=== PATIENT | female | born 1975 | race American Indian/Alaskan Native ===

== ENCOUNTER 2016-06-25 18:51 | Emergency (ER) | payer MEDICAID ==
--- NOTE | 2016-06-25 21:14 | Emergency Department Report ---
HPI - General Chief Complaint: Extremity Problem,Nontraumatic Time Seen by Provider: 06/25/16 20:28 - HPI HPI: 40-year-old female presents to ED complaining of left-sided back pain that radiates down her anterior left thigh 4 days. Patient states she is out of this pain for the past 4 days. Patient states walking for long distances as well as standing for prolonged period makes the pain worse. Patient denies any recent falls injury or trauma. Patient denies any allergies to any medications. Patient denies fever assess chills/nausea/vomiting/abdominal pain as chest pain/ shortness of breath or problems. ED Past Medical Hx - Past Medical History Previous Medical History?: Yes Additional medical history: Lymphedema. Obesity - Surgical History Past Surgical History?: Yes Additional Surgical History: C-Sec x 3 - Social History Smoking Status: Never Smoker Substance Use Type: None - Medications Home Medications: Home Medications Medication Instructions Recorded Confirmed Last Taken Type methOCARBAMOL [Robaxin TAB] 500 mg PO BID #20 tablet 06/25/16 Unknown Rx traMADol [Ultram 50 MG tab] 50 mg PO Q6H #24 tablet 06/25/16 Unknown Rx ED Review of Systems ROS: Stated complaint: PAIN IN LEFT LEG/RT KNEE/BACK Other details as noted in HPI Constitutional: denies: chills, fever Eyes: denies: eye pain, eye discharge, vision change ENT: denies: ear pain, throat pain Respiratory: denies: cough, shortness of breath, wheezing Cardiovascular: denies: chest pain, palpitations Endocrine: no symptoms reported Gastrointestinal: denies: abdominal pain, nausea, diarrhea Genitourinary: denies: urgency, dysuria, discharge Musculoskeletal: denies: back pain, joint swelling, arthralgia Skin: denies: rash, lesions Neurological: denies: headache, weakness, paresthesias Psychiatric: denies: anxiety, depression Hematological/Lymphatic: denies: easy bleeding, easy bruising Physical Exam - Physical Exam Vital Signs: Vital Signs 06/25/16 19:31 Temperature 98.6 F Pulse Rate 61 Respiratory 18 Rate Blood Pressure 153/71 [Right] O2 Sat by Pulse 100 Oximetry Physical Exam: GENERAL: Alert and oriented x3, no apparent distress, Normal Gait, atraumatic. HEAD: Head is normocephalic and a-traumatic. EYES: Extra ocular muscles are intact. Pupils are equal, round, and reactive to light and accommodation. LUNGS: Symetrical with respiration, No wheezing, no rales or crackles, CTAB. HEART: S1, S2 present, regular rate and rhythm without murmur, no rubs, no gallops. EXTREMITIES/MUSCULOSKELETAL: No cyanosis, clubbing, rash, lesions or edema. Full ROM bilaterally. UE/LE Pulses 2+ bilaterally. LE and UE 5+ strength bilaterally. No calf tenderness bilaterally. Tenderness to palpation of the anterior thigh muscles. Straight leg raise positive on the left side. NEUROLOGIC: No focal Deficit, Cranial nerves II through XII are grossly intact. No loss of sensation, SKIN: Warm and dry, No lesions, No ulceration or induration present. ED Course Vital Signs 06/25/16 19:31 Temperature 98.6 F Pulse Rate 61 Respiratory 18 Rate Blood Pressure 153/71 [Right] O2 Sat by Pulse 100 Oximetry ED Medical Decision Making - Medical Decision Making 40-year-old female presents with lumbar radiculopathy. ED course: Patient received tramadol and Robaxin ED. Discussed the patient will follow-up with the primary care physician as referred. Discussed rest and avoid strenuous activities. Discussed to take medication as prescribed. Patient states she understands and will follow-up as discussed. Vital signs are normal. Patient is in no acute or respiratory distress. Critical care attestation.: If time is entered above; I have spent that time in minutes in the direct care of this critically ill patient, excluding procedure time. ED Disposition Clinical Impression: Lumbar radiculopathy Disposition: DISCHARGED TO HOME OR SELFCARE Is pt being admited?: No Does the pt Need Aspirin: No Condition: Stable Instructions: Lumbar Radiculopathy (ED), Musculoskeletal Pain (ED), Trigger Point Pain (ED), Heat Pack Application (ED) Prescriptions: methOCARBAMOL [Robaxin TAB] 500 mg PO BID #20 tablet traMADol [Ultram 50 MG tab] 50 mg PO Q6H #24 tablet Referrals: PRIMARY CARE, [Primary Care Provider] - 3-5 Days DARWIN TAYLOR MD [Staff Physician] - 3-5 Days KENNEDI GREENBERG MD [Referring] - 3-5 Days ESAU JACOBO MD [Referring] - 3-5 Days [facility] [Outside] - 3-5 Days [facility] [Outside] - 3-5 Days [facility] [Outside] - 3-5 Days Forms: Accompanied Note, Work/School Release Form(ED) Time of Disposition: 21:21
[2016-06-25] MEDS ORDERED: ROBAXIN PO ONE (21:15)
[2016-06-25] MEDS ORDERED: ULTRAM PO ONE (21:15)
[2016-06-25 21:50] VITALS: BP 130/89
== END 2016-06-25 21:50 | disposition home or self-care (01) ==
LOC: ED 18:51
DX: M54.16 Radiculopathy, lumbar region (principal)
CPT/HCPCS: 99282

== ENCOUNTER 2017-01-01 06:16 | Day surgery (SDC) | payer MEDICAID ==
--- NOTE | 2017-01-01 07:08 | Anesthesia Day of Surgery ---
Anesthesia Day of Surgery - Day of Surgery Patient Examined: Yes Patient H&P Reviewed: Yes Patient is NPO: Yes
--- NOTE | 2017-01-01 07:08 | Anesthesia Consultation ---
Anesthesia Consult and Med Hx Date of service: 01/01/17 - Airway Anesthetic Teeth Evaluation: Good ROM Head & Neck: Adequate Mental/Hyoid Distance: Adequate Mallampati Class: Class III Intubation Access Assessment: Probably Good - Pulmonary Exam CTA: Yes - Cardiac Exam Cardiac Exam: RRR - Pre-Operative Health Status ASA Pre-Surgery Classification: ASA3 Proposed Anesthetic Plan: General - Other Systems Hx Obesity: Yes - Additional Comments Anesthesia Medical History Comments: NAC previously. Patient is morbidly obese , but otherwise healthy.
[2017-01-01 07:28] VITALS: BP 140/73
[2017-01-01] MEDS ORDERED: DIPRIVAN 10 MG/ML IV ONE (07:36)
[2017-01-01] MEDS ORDERED: WATER FOR IRRIG STERILE IR ONE (07:43)
--- NOTE | 2017-01-01 07:58 | Discharge Summary ---
Providers - Providers Date of discharge: 01/01/17 Attending physician: KURT PEREZ Primary care physician: JIGAR NOEL Hospitalization Condition: Good Procedures: egd Disposition: DC- TO HOME OR SELFCARE Core Measure Documentation - Palliative Care Palliative Care/ Comfort Measures: Not Applicable - Core Measures Any of the following diagnoses?: none Exam - Physical Exam Narrative exam: unchanged from pre-op - Constitutional Vitals: Temp Pulse Resp BP Pulse Ox 97.9 F 58 L 20 140/73 99 01/01/17 07:15 01/01/17 07:15 01/01/17 07:15 01/01/17 07:15 01/01/17 07:15 Plan Activity: no restrictions Weight Bearing Status: Full Weight Bearing Diet: regular Follow up with: JIGAR NOEL MD [Primary Care Provider] - 7 Days
[2017-01-01] MEDS ORDERED: NACL 0.9% 1000 ML 1,000 ML IV SCH (08:00)
--- NOTE | 2017-01-01 08:00 | Operative Report ---
Operative Report Operative Report: OPERATIVE REPORT - EGD DATE 01/01/17 SURGERY: Upper endoscopy. SURGEON: Jo eJong M.D. PRE OP DX: dyspepsia POST OP DX: hiatal hernia TYPE OF ANESTHESIA: MAC. ESTIMATED BLOOD LOSS: None. COMPLICATIONS: None. SPECIMENS REMOVED: None. FINDINGS: 1. Small hiatal hernia. 2. Otherwise, normal esophagus, stomach and first portion of duodenum. INDICATIONS:INDICATION FOR PROCEDURE: Patient is a 41-year-old female with a long history of morbid obesity. She is planned to have a weight loss procedure and is here for preoperative planning EGD. We are looking for any pathology that may be prohibitive to her upcoming bariatric surgery. PROCEDURE DETAILS: After consent was reviewed, patient was taken back to the operating room where patient was placed in the left lateral decubitus position and a bite block was placed in the mouth. After a time-out was called, MAC anesthesia was initiated. I then passed the endoscope into her oropharynx, into her esophagus, visualized the entire esophagus, which was all within normal limits. I then visualized the stomach and the first portion of the duodenum and there were no abnormalities I could clearly visualize. I then retroflexed the scope in the stomach and visualized the hiatus and I could see a small hiatal hernia. I then desufflated the stomach and removed the endoscope. Patient tolerated procedure well and was transferred to recovery room in good and stable condition.
--- NOTE | 2017-01-01 08:40 | Post Anesthesia Evaluation ---
- Post Anesthesia Evaluation Patient Participated: Yes Airway Patent: Yes Stable Respiratory Function: Yes Nausea/Vomiting: No Temp > 96.8F: Yes Pain Manageable: Yes Adequeate Hydration: Yes Anesthesia Complications: No Block Receding Appropriately: Not Applicable Patient on Ventilator: No
== END 2017-01-01 06:17 | disposition home or self-care (01) ==
LOC: GIO 06:16
PROVIDERS: ATTEND Surgery
DX: K44.9 Diaphragmatic hernia without obstruction or gangrene (principal); E66.01 Morbid (severe) obesity due to excess calories
CPT/HCPCS: 43235; 81025; J2704; J7030

== ENCOUNTER 2017-01-15 07:25 | Inpatient (IN) | payer MEDICAID ==
--- NOTE | 2017-01-11 13:01 | Anesthesia Consultation ---
Anesthesia Consult and Med Hx Date of service: 01/15/17 - Airway Anesthetic Teeth Evaluation: Good ROM Head & Neck: Adequate Mental/Hyoid Distance: Adequate Mallampati Class: Class II Intubation Access Assessment: Probably Good - Pulmonary Exam CTA: Yes - Cardiac Exam Cardiac Exam: RRR - Pre-Operative Health Status ASA Pre-Surgery Classification: ASA3 Proposed Anesthetic Plan: General - Pulmonary Hx Smoking: No Hx Sleep Apnea: Yes (denies) - Cardiovascular System Hx Hypertension: No - Gastrointestinal Hx Gastroesophageal Reflux Disease: Yes - Endocrine Hx Non-Insulin Dependent Diabetes: No - Other Systems Hx Obesity: Yes (BMI 55) - Additional Comments Anesthesia Medical History Comments: Osteoarthritis
[2017-01-15] MEDS: FLAGYL 500 MG/100 ML 500 MG/100 ML BAG IV SCH (01:00)
[~2017-01-15 07:25] MED LIST: NACL 0.9% 1000 ML 1,000 ML IV SCH; PEPCID IV NR; TRANSDERM-SCOP TD NR; VERSED IV NR
[2017-01-15] MEDS ORDERED: FLAGYL 500 MG/100 ML 500 MG/100 ML BAG IV NR (08:00)
[2017-01-15] MEDS ORDERED: TRANSDERM-SCOP TD SCH (08:00)
[2017-01-15] MEDS ORDERED: ANCEF/STERILE WATER 2 GM/20 ML 2 GM/20 ML SYRINGE IV NR (08:00)
[2017-01-15] MEDS ORDERED: LOVENOX SUB-Q NR (08:00)
[2017-01-15] MEDS ORDERED: XYLOCAINE MPF 2% ONE (08:24)
[2017-01-15] MEDS ORDERED: DIPRIVAN 10 MG/ML IV ONE (08:24)
[2017-01-15] MEDS ORDERED: DECADRON ONE (08:25)
[2017-01-15] MEDS ORDERED: DILAUDID ONE (08:25)
[2017-01-15] MEDS ORDERED: ZOFRAN ONE (08:25)
[2017-01-15] MEDS ORDERED: ZEMURON IV ONE (08:25)
[2017-01-15 09:04] LABS: Basophils % (Auto) 0.8 % (0.0-1.8); Eosinophils % (Auto) 1.3 % (0.0-4.3); Hematocrit 34.1 % (30.3-42.9); Mean Corpuscular HGB Conc 32 % (30-34); Mean Corpuscular Hemoglobin 27 pg (28-32); Mean Corpuscular Volume 84 fl (79-97); Platelet Count 372 K/mm3 (140-440); Red Blood Count 4.08 M/mm3 (3.65-5.03); Red Cell Distribution Width 15.8 % (13.2-15.2); White Blood Count 7.1 K/mm3 (4.5-11.0)
[2017-01-15 09:12] LABS: BUN/Creatinine Ratio 17; Blood Urea Nitrogen 10 mg/dL (7-17); Calcium 9.1 mg/dL (8.4-10.2); Carbon Dioxide 27 mmol/L (22-30); Chloride 100.3 mmol/L (98-107); Glucose 75 mg/dL (65-100); Sodium 139 mmol/L (137-145)
--- NOTE | 2017-01-15 09:13 | Anesthesia Consultation ---
Anesthesia Consult and Med Hx Date of service: 01/15/17 - Airway Anesthetic Teeth Evaluation: Good ROM Head & Neck: Adequate Mental/Hyoid Distance: Adequate Mallampati Class: Class II Intubation Access Assessment: Good - Pulmonary Exam CTA: Yes - Cardiac Exam Cardiac Exam: No Murmur - Pre-Operative Health Status ASA Pre-Surgery Classification: ASA2 Proposed Anesthetic Plan: General - Pulmonary Hx Smoking: No Hx Sleep Apnea: Yes (denies) - Cardiovascular System Hx Hypertension: No - Central Nervous System Hx Psychiatric Problems: No - Gastrointestinal Hx Gastroesophageal Reflux Disease: Yes - Endocrine Hx Non-Insulin Dependent Diabetes: No - Other Systems Hx Alcohol Use: No Hx Substance Use: No Hx Cancer: No Hx Obesity: Yes (BMI 55) - Additional Comments Anesthesia Medical History Comments: Osteoarthritis
--- NOTE | 2017-01-15 09:13 | Anesthesia Day of Surgery ---
Anesthesia Day of Surgery - Day of Surgery Patient Examined: Yes Patient H&P Reviewed: Yes Patient is NPO: Yes
[2017-01-15 09:17] LABS: Anion Gap 17 mmol/L; Potassium 4.9 mmol/L (3.6-5.0)
[2017-01-15] MEDS ORDERED: NACL 0.9% 1000 ML 0 ML ONE (09:33)
[2017-01-15 10:00] LABS: Bilirubin,Urine NEG (Negative); Blood,Urine NEG (Negative); Ketones,Urine TR mg/dL (Negative); Leukocyte Esterase,Urine NEG (Negative); Mucus,Urine FEW /HPF; Nitrite,Urine NEG (Negative); Protein,Urine <15 mg/dL mg/dL (Negative); Urobilinogen,Urine < 2.0 mg/dL (<2.0)
[2017-01-15] MEDS ORDERED: NEO SYNEPHRINE/NS Syringe(OR USE) IV ONE (10:00)
[2017-01-15] MEDS ORDERED: XYLOCAINE 1% 20 mL ONE (10:32)
[2017-01-15] MEDS ORDERED: MARCAINE 0.5% 30 ML INFILTRATI ONE (10:32)
[2017-01-15] MEDS ORDERED: APRESOLINE IV PRN (10:33)
[2017-01-15] MEDS ORDERED: ADRENALIN ONE (10:33)
[2017-01-15] MEDS ORDERED: ZOFRAN IV PRN (10:33)
[2017-01-15] MEDS ORDERED: MYLICON PO PRN (10:33)
[2017-01-15] MEDS ORDERED: REGLAN IV PRN (10:33)
[2017-01-15] MEDS ORDERED: DILAUDID IV PRN (10:39)
[2017-01-15] MEDS ORDERED: NORCO PO PRN (10:39)
[2017-01-15] MEDS ORDERED: XYLOCAINE 1% 20 mL INFILTRATI ONE (11:25)
[2017-01-15] MEDS ORDERED: NACL 0.9% IR ONE (11:26)
[2017-01-15] MEDS ORDERED: ADRENALIN IV ONE (11:26)
[2017-01-15] MEDS ORDERED: MARCAINE 0.5% INFILTRATI ONE (11:43)
[2017-01-15] MEDS ORDERED: LACTATED RINGERS 1,000 ML IV SCH (11:55)
[2017-01-15] MEDS ORDERED: NEOSTIGMINE ONE (12:24)
[2017-01-15] MEDS ORDERED: ROBINUL ONE (12:24)
--- NOTE | 2017-01-15 12:39 | Operative Report ---
Operative Report Operative Report: Operative Report DATE OF PROCEDURE: PREOPERATIVE DIAGNOSES: Morbid obesity, hiatal hernia POSTOPERATIVE DIAGNOSES: 1.same as pre-op SURGEON: Jo Jeong M.D. BATTERYMAN: Lana Still DO PROCEDURE: 1. laparoscopic sleeve gastrectomy 2. laparoscopic hiatal hernia repair ANESTHESIA: General. ESTIMATED BLOOD LOSS: <5 mL. COMPLICATIONS: None. SPECIMEN: Partial gastrectomy. FINDINGS: 1. hiatal hernia INDICATION FOR PROCEDURE: Patient is a 41-year-old female with a long history of morbid obesity. She has tried multiple efforts at weight loss without terminal superintendent success. She is here today for sleeve gastrectomy. PROCEDURE IN DETAIL: After consent was reviewed, patient was taken back to the operating room, where patient was placed supine on the bed with both arms out. The patient's legs were doubly strapped to the bed. Patient had a foot board in place. Patient had a body warmer placed by anesthesia. Patient was then prepped and draped in normal sterile surgical fashion. After a time-out was called, I made a stab incision in left upper quadrant and placed a Veress needle through this incision and insufflated the abdomen to 18 mmHg pressure. I then counted down a handsbreadth below the xiphoid process in the midline and slightly left lateral injected local anesthetic and made about 1.5 cm transverse incision. I then used a 12-mm Optiview trocar to enter into the abdomen. I then placed a 45- degree scope through this port and inspected the abdomen. There was no injury on entry of the abdomen. I then placed two 5-mm ports in the right upper quadrant, one along the anterior axillary line and 1 subxiphoid below the costovertebral angle. I then placed a 15-mm port about a handsbreadth left lateral and inferior to my anterior axillary port. I then placed left upper quadrant port along the anterior axillary line in a similar fashion. I then placed the liver retractor through the subxiphoid port and placed the patient in full reverse Trendelenburg. The right and left crura were skeletonized accentuating a small hiatal hernia. I then identified the pylorus and then counted off 6cm from the pylorus. I then used a LigaSure cutting device to enter into the lesser sac. At that point and then I took down the short gastrics all the way up to the left narayan. Then I had anesthesia pass down a 36-[place]izen [place] bougie along the lesser curvature of the stomach. I made sure everything else was out of the abdomen except the bougie. I then created my gastric sleeve using a 60-mm laparoscopic stapler. . The sleeve looked good without any twisting or torsion. I then had anesthesia to remove the bougie. Hemostasis was obtained along the staple line. An anterior cruraplasty was perfromed with a figure-of-8 stitch using surgidac suture to reapproximate the crura. I then used Tiseel along the entirety of the staple line and some on the liver. I then removed liver grasper and took it off the field. Hemostasis was obtained with hemoclips. I then removed the stomach through the 15-mm port. I then closed that fascia with a #1 PDS in a [id number] fashion using a Jhony-Wade. I then desufflated the abdomen and then removed all port sites. I then closed the incisions with 4-0 Monocryl in subcuticular fashion. I then dressed the wounds with Dermabond. Patient tolerated the procedure well and was transferred to recovery room in good and stable condition.
[2017-01-15] MEDS: MORPHINE IV PRN (13:12)
[2017-01-15] MEDS ORDERED: ANCEF/NS 1 GM/50 ML 1 GM/50 ML BAG IV SCH (16:00)
[2017-01-16 04:19] LABS: Basophils % (Auto) 0.2 % (0.0-1.8); Hematocrit 32.2 % (30.3-42.9); Hemoglobin 10.7 gm/dl (10.1-14.3); Mean Corpuscular HGB Conc 33 % (30-34); Mean Corpuscular Hemoglobin 28 pg (28-32); Mean Corpuscular Volume 83 fl (79-97); Platelet Count 403 K/mm3 (140-440); Red Blood Count 3.89 M/mm3 (3.65-5.03); Red Cell Distribution Width 16.1 % (13.2-15.2); White Blood Count 12.4 K/mm3 (4.5-11.0)
[2017-01-16 04:42] LABS: Alanine Aminotransferase 11 units/L (7-56); Albumin 3.3 g/dL (3.9-5); Alkaline Phosphatase 49 units/L (35-129); Anion Gap 19 mmol/L; BUN/Creatinine Ratio 16; Blood Urea Nitrogen 8 mg/dL (7-17); Calcium 8.4 mg/dL (8.4-10.2); Carbon Dioxide 21 mmol/L (22-30); Chloride 102.6 mmol/L (98-107); Glucose 104 mg/dL (65-100); Potassium 4.6 mmol/L (3.6-5.0); Sodium 138 mmol/L (137-145); Total Protein 6.7 g/dL (6.3-8.2)
[2017-01-16 08:12] VITALS: BP 113/46
[2017-01-16] MEDS: FLAGYL 500 MG/100 ML 500 MG/100 ML BAG IV SCH (09:20)
[2017-01-16] MEDS: MORPHINE IV PRN (09:26)
--- NOTE | 2017-01-16 09:46 | Discharge Summary ---
Providers - Providers Date of Admission: 01/15/17 07:25 Attending physician: KURT PEREZ Primary care physician: TIRE AND LUBE TECHNICIAN Hospitalization Condition: Good Procedures: laparoscopic sleeve gastrectomy Hospital course: 41 y.o. Female admitted to the hospital for a lap sleeve gastrectomy and hiatal hernia repair. The patient tolerated the procedure well. She tolerated janey I diet on POD 1. She denies n/v. She was able to ambulate and her pain was controlled. She was discharged on POD 1 without issues. Disposition: DC-01 TO HOME OR SELFCARE Core Measure Documentation - Palliative Care Palliative Care/ Comfort Measures: Not Applicable - Core Measures Any of the following diagnoses?: none Exam - Physical Exam Narrative exam: Abd: soft, tender at incision sites. no rebound no guarding. incision sites cdi - Constitutional Vitals: Temp Pulse Resp BP Pulse Ox 98.8 F 65 16 113/46 95 01/16/17 07:38 01/16/17 07:38 01/16/17 07:38 01/16/17 07:38 01/16/17 07:38 Plan Activity: other (no lifting >15 lbs for 6 weeks ) Diet: clear liquids (no sugar) Wound: other (may shower tomorrow) Additional Instructions: follow up for wound check Follow up with: SOILA CHUNG MD [Primary Care Provider] - 7 Days
[2017-01-16] MEDS ORDERED: LOVENOX SUB-Q SCH (10:00)
--- NOTE | 2017-01-16 13:42 | Progress Note ---
Subjective Date of service: 01/16/17 Interval history: Patient is awake and alert. No anesthetic related complaints. Objective - Constitutional Vitals: Vital Signs - 12hr 01/16/17 01/16/17 01/16/17 01:49 05:06 07:38 Temperature 98.4 F 98.4 F 98.8 F Pulse Rate 69 70 64 Respiratory 20 18 16 Rate Blood Pressure 132/56 138/64 Blood Pressure 113/46 [Left] O2 Sat by Pulse 94 98 97 Oximetry 01/16/17 10:00 Temperature Pulse Rate Respiratory Rate Blood Pressure Blood Pressure [Left] O2 Sat by Pulse 97 Oximetry - Labs CBC & Chem 7: 01/16/17 03:49 01/16/17 03:49 Labs: Abnormal lab results 01/16/17 01/16/17 Range/Units 03:49 03:49 WBC 12.4 H (4.5-11.0) K/mm3 RDW 16.1 H (13.2-15.2) % Lymph % (Auto) 7.1 L (13.4-35.0) % Lymph # 0.9 L (1.2-5.4) K/mm3 Seg Neutrophils % 88.8 H (40.0-70.0) % Seg Neutrophils # 11.0 H (1.8-7.7) K/mm3 Carbon Dioxide 21 L (22-30) mmol/L Creatinine 0.5 L (0.7-1.2) mg/dL Glucose 104 H (65-100) mg/dL Albumin 3.3 L (3.9-5) g/dL
== END 2017-01-16 16:53 | disposition home or self-care (01) | DRG 621 ==
LOC: 3A 07:25 → 3B-SURG 13:49
PROVIDERS: ADMIT Surgery; ATTEND Surgery
PROC: 0DB64Z3 Excision of Stomach, Percutaneous Endoscopic Approach, Vertical (ICD-10-PCS; principal; 2017-01-15)
PROC: 0BQT4ZZ Repair Diaphragm, Percutaneous Endoscopic Approach (ICD-10-PCS; 2017-01-15)
DX: E66.01 Morbid (severe) obesity due to excess calories (principal); K44.9 Diaphragmatic hernia without obstruction or gangrene; Z68.43 Body mass index [BMI] 50.0-59.9, adult; Z71.3 Dietary counseling and surveillance; M19.90 Unspecified osteoarthritis, unspecified site; K21.9 Gastro-esophageal reflux disease without esophagitis
CPT/HCPCS: 36415; 80048; 80053; 81001; 81025; 85025; 88307; 88342; 94760; C9250; J0171; J0360; J0690; J1100; J1170; J1650; J2250; J2270; J2370; J2405; J2704; J2710; J7030; J7120

== ENCOUNTER 2017-12-19 01:41 | Emergency (ER) | payer MEDICAID ==
[2017-12-19] MEDS ORDERED: SOLU-Medrol IM ONE (02:06)
[2017-12-19] MEDS ORDERED: BENADRYL PO ONE (02:06)
[2017-12-19] MEDS ORDERED: PEPCID PO ONE (02:16)
[2017-12-19] MEDS ORDERED: PEPCID ONE (02:18)
--- NOTE | 2017-12-19 04:18 | XRay Report ---
FINAL REPORT PROCEDURE: XR SHOULDER BILAT 2+V TECHNIQUE: BILATERAL shoulder radiographs including AP views in internal and external rotation and abduction. HISTORY: Bilateral shoulder pain COMPARISON: No prior studies are available for comparison. FINDINGS: Fracture(s) and/or Dislocation(s): None. Joint space(s): Mild narrowing of the joint spaces. There is mild spur formation off of the acromioclavicular joint. Soft tissues: Normal. Bone mineralization: Normal. Foreign bodies: None. IMPRESSION: There is no evidence of an acute fracture or dislocation. Mild arthritis bilateral shoulders.
--- NOTE | 2017-12-19 04:19 | XRay Report ---
FINAL REPORT PROCEDURE: XR SPINE LUMBOSACRAL 2-3V TECHNIQUE: Lumbar spine radiographs, frontal and lateral views. CPT 61600 HISTORY: Lower back pain COMPARISON: No prior studies are available for comparison. FINDINGS: Alignment: Normal . Vertebral body heights/Disk spaces: Normal . Fracture(s): None . Facets: Normal . Bone mineralization: Normal . IMPRESSION: Normal Examination
[2017-12-19 05:51] VITALS: BP 130/78
[2017-12-19] MEDS ORDERED: NORCO 5/325 PO ONE (06:57)
--- NOTE | 2017-12-19 07:04 | Emergency Department Report ---
HPI - General Chief Complaint: Allergic Reaction Time Seen by Provider: 12/19/17 06:30 - HPI HPI: The patient is a 42-year-old female who presents for evaluation of shoulder and back pain. The patient reports left shoulder pain and bilateral low back pain for the past one week, aching in quality, exacerbated with movement, currently moderate in severity. The patient denies blunt trauma to the left shoulder or back, fall, fever, chills, night sweats, saddle anesthesia, paresthesias, numbness or tingling in the arms or legs, leg weakness, urine or bowel incontinence or retention, difficulty ambulating, or other focal neurological deficits. ED Past Medical Hx - Past Medical History Hx Hypertension: No Hx Congestive Heart Failure: No Hx Diabetes: No Hx GERD: Yes Hx Arthritis: Yes (Knees) Hx Headaches / Migraines: Yes Hx Asthma: No Hx COPD: No Hx HIV: No Additional medical history: Lymphedema. Obesity - Surgical History Additional Surgical History: C-Sec x 3, TUBAL LIGATION - Social History Smoking Status: Never Smoker Substance Use Type: None - Medications Home Medications: Home Medications Medication Instructions Recorded Confirmed Last Taken Type HYDROcodone/APAP 5-325 [[place] 1 each PO Q6HR PRN #12 tablet 12/19/17 Unknown Rx 5/325] Ibuprofen [Motrin] 800 mg PO Q8HR PRN #15 tablet 12/19/17 Unknown Rx ED Review of Systems ROS: Stated complaint: BACK,SHOULDER PAIN,HIVES LEG,THIGH Other details as noted in HPI Constitutional: denies: fever ENT: denies: throat or neck pain Respiratory: denies: cough, shortness of breath Cardiovascular: denies: chest pain Endocrine: denies unexplained weight loss or gain Gastrointestinal: denies: abdominal pain, nausea Genitourinary: denies: dysuria Musculoskeletal: reports shoulder and back pain denies: leg swelling Skin: denies: rash Neurological: denies: headache Hematological/Lymphatic: denies: easy bleeding or easy bruising Psych: denies sadness or hopelessness Physical Exam - Physical Exam Vital Signs: Vital Signs 12/19/17 12/19/17 01:58 05:50 Temperature 98.5 F Pulse Rate 74 67 Respiratory 16 18 Rate Blood Pressure 128/73 Blood Pressure 130/78 [Left] O2 Sat by Pulse 99 98 Oximetry Physical Exam: General: well-nourished, well-developed, no acute distress Head: Normocephalic, atraumatic Eyes: normal sclera ENT: Mucous membranes are pink and moist Neck: trachea midline, neck supple, No neck stiffness, no cervical adenopathy Respiratory: Breath sounds equal bilaterally, no wheezing, rales, or rhonchi Cardio: S1 and S2 present, no murmurs, rubs, gallops, capillary refill is brisk Abdomen: Normoactive bowel sounds, soft abdomen, no tenderness Musc: Inspection of the left shoulder and back unremarkable, full passive and active range of motion of the left shoulder intact, Tenderness to palpation present to the left caudal medial trapezius, and bilateral lumbar paraspinal musculature, no midline cervical, thoracic, or lumbar TTP, pain is elicited with reproducible with abduction of the left shoulder, normal active range of motion at the hip intact, no spinous step-off or obvious deformity, ipsi- lateral and contralateral straight leg raise tests are negative. On extremity testing, compartments are soft and pliable, no obvious gross motor strength deficit in the arms or legs bilaterally, 5+ motor strength, including extension of the great toe bilaterally, no muscular atrophy, spasticity, fasciculations, or clonus, no obvious gross sensation deficit in the arms or legs bilaterally, including web space between 1st and 2nd toes, reflexes 2+ & symmetric on DTR testing at the elbow, knee and ankle joints, distal pulses intact. Skin: No rash Neuro: no facial drooping, normal speech Psych: Normal affect ED Course Vital Signs 12/19/17 12/19/17 01:58 05:50 Temperature 98.5 F Pulse Rate 74 67 Respiratory 16 18 Rate Blood Pressure 128/73 Blood Pressure 130/78 [Left] O2 Sat by Pulse 99 98 Oximetry ED Medical Decision Making - Medical Decision Making The patient was seen and examined by myself. The patient is placed on a counterintelligence/humint specialist and continuous pulse ox. On initial evaluation, the patient was found to be in no distress. No findings on exam concerning for cauda equina syndrome, spinal stenosis, or epidural abscess. As the patient has no midline tenderness on exam, no neuro deficits, and no findings concerning for emergent etiology of their back pain, CT or MRI imaging is not indicated at this time. The patient is given pain medicine. X-ray of the left shoulder is unremarkable. X-ray of the lumbar spine is unremarkable. The patient was reevaluated and reported that their pain significantly improved. The patient is stable for discharge with outpatient follow-up. The patient is given follow-up and return instructions. The patient expressed understanding and agreed with the plan. The patient is discharged in stable condition. Critical care attestation.: If time is entered above; I have spent that time in minutes in the direct care of this critically ill patient, excluding procedure time. ED Disposition Clinical Impression: Acute pain of left shoulder, Acute bilateral low back pain without sciatica Disposition: TO HOME OR SELFCARE Is pt being admited?: No Does the pt Need Aspirin: No Condition: Stable Instructions: Low Back Strain (ED), Arthralgia (ED), Muscle Spasm (ED), Back Pain (ED) Prescriptions: HYDROcodone/APAP 5-325 [[place] 5/325] 1 each PO Q6HR PRN #12 tablet PRN Reason: Pain Ibuprofen [Motrin] 800 mg PO Q8HR PRN #15 tablet PRN Reason: Pain Referrals: KASSI DENSON MD [Staff Physician] - 3-5 Days [facility] [Outside] - 3-5 Days Time of Disposition: 07:02
== END 2017-12-19 07:27 | disposition home or self-care (01) ==
LOC: ED 01:41
DX: M54.5 Low back pain (principal); M25.512 Pain in left shoulder; M19.90 Unspecified osteoarthritis, unspecified site; G43.909 Migraine, unspecified, not intractable, without status migrainosus; Z98.51 Tubal ligation status
CPT/HCPCS: 72100; 73030; 96372; 99284; J2930